=== PATIENT | male | born 1975 | race African-American/Black ===

== ENCOUNTER 2024-09-10 16:02 | Emergency (ER) | payer OTHER ==
[~2024-09-10] VITALS: Ht 175.3 cm; Wt 125.8 kg
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
[2024-09-10 19:40] VITALS: BP 149/99
[2024-09-10 19:41] VITALS: PULSE 82; RESP 19; O2SAT 97
[2024-09-10 19:47] VITALS: TEMP 98.3
[2024-09-10] MEDS: IBUPROFEN 600 MG TAB PO ONE (19:47)
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
[2024-09-10] MEDS ORDERED: CYCL-838 PO (20:24)
[2024-09-10] MEDS ORDERED: GABA300T4 PO (20:24)
== END 2024-09-10 20:29 | disposition home or self-care (01) ==
LOC: ER 16:02
DX: S13.4XXA Sprain of ligaments of cervical spine, initial encounter (principal); S33.5XXA Sprain of ligaments of lumbar spine, initial encounter; Z79.899 Other long term (current) drug therapy; V89.2XXA Person injured in unspecified motor-vehicle accident, traffic, initial encounter; Y93.89 Activity, other specified; Y92.488 Other paved roadways as the place of occurrence of the external cause; Y99.8 Other external cause status
CPT/HCPCS: 72040; 72100